=== PATIENT | female | born 1940 | race Caucasian/White ===

== ENCOUNTER 2024-02-05 05:38 | Emergency (ER) | payer MEDICARE, OTHER, SELFPAY ==
[2024-02-05] VITALS (7 sets, daily range): BP systolic 146–173; BP diastolic 84–118; PULSE 81–87; RESP 16–24; TEMP 36.6–36.9; O2SAT 92–97; BMI 38.5
--- NOTE | 2024-02-05 06:02 | EKG12_ITS ---
Test Reason : DYSRHYTHMIA Blood Pressure : / mmHG Vent. Rate : 079 BPM Atrial Rate : 079 BPM P-R Int : 174 ms QRS Dur : 124 ms QT Int : 428 ms P-R-T Axes : 060 043 075 degrees QTc Int : 490 ms Sinus rhythm with occasional Premature ventricular complexes Inferior infarct , age undetermined Anterior infarct , age undetermined Abnormal ECG Confirmed by TRINY MARIA, GAMALIEL ([id number]), photography editor HEATHER HANSEN ([id number]) on 02/06/2024 11:22:45 AM Referred By: Confirmed By:GAMALIEL AGOSTO MD
--- NOTE | 2024-02-05 06:03 | EDS_ITS ---
HPI History of Present Illness Chief Complaint: Shortness of Breath Informant: patient and family Narrative Narrative: 83-year-old female presenting at 5:45 AM for worsening dyspnea and orthopnea over the past 3 or 4 weeks. She has had a cough for over 3 months. She has a complicated medical history, and all of her doctors are in [place] where she usually lives with one of her daughters. However that daughter had to have hip surgery and so now she is living with her other daughter here and has been here since , and daughter admits that she has unexpectedly been here much longer. Her doctors in [place] have been refilling her medications as needed so she has had them however she does not have her list with her and has trouble remembering all of the medications that she is on. She has bilateral leg edema that is chronic and actually little better than usual lately. She had a tunneled infection in her right foot that required her to be on having antibiotics, she has had poor appetite ever since, and also had a complicated hip infection with hardware present to the point where she needed her hip removed and has been bedbound and in a wheelchair ever since. She did spend several months in inpatient rehab recently but is now currently living with her daughter here locally. She denies any chest discomfort. The cough is nonproductive. No fevers or chills. No GI symptoms. Chronic neuropathy that she states is not diabetic-related in her lower distal extremities. She is on clopidogrel but no anticoagulants. History of CABG several years ago, and chronic kidney disease to some degree per daughter. [facility] Medical History (Updated 02/05/24 @ 07:[address] Nik Muhammad MD) Systolic and diastolic CHF, chronic Chronic kidney disease, stage 3 unspecified CAD (coronary artery disease) HTN (hypertension) Hypothyroidism Great toe amputee Home Medications ?Medication ?Instructions ?Recorded ?Last Taken ?Type amiodarone 200 mg tablet 200 mg PO DAILY 02/05/24 Unknown History clopidogrel 75 mg tablet 75 mg PO DAILY 02/05/24 Unknown History doxycycline hyclate 100 mg capsule 40 mg PO BID 02/05/24 Unknown History duloxetine 60 mg capsule,delayed 60 mg PO DAILY 02/05/24 Unknown History release (Cymbalta) esomeprazole magnesium 40 mg 40 mg PO DAILY 02/05/24 Unknown History capsule,delayed release (Nexium) ezetimibe 10 mg tablet (Zetia) 10 mg PO DAILY 02/05/24 Unknown History furosemide 20 mg tablet (Lasix) 10 mg PO QDAY PRN edema 02/05/24 Unknown History gabapentin 600 mg tablet 600 mg PO TID 02/05/24 Unknown History hydralazine 25 mg tablet 25 mg PO TID 02/05/24 Unknown History hydroxyzine HCl 25 mg tablet 12.5 mg PO Q8H 02/05/24 Unknown History levothyroxine 100 mcg tablet 100 mcg PO DAILY 02/05/24 Unknown History losartan 100 mg tablet 100 mg PO DAILY 02/05/24 Unknown History niacin 100 mg tablet 100 mg PO DAILY 02/05/24 Unknown History potassium chloride 20 mEq 20 meq PO DAILY #5 tabs 02/05/24 Unknown Rx tablet,extended release torsemide 10 mg tablet 10 mg PO DAILY PRN pulmonary edema 02/05/24 Unknown History Allergy/AdvReac Type Severity Reaction Status Date / Time Sulfa (Sulfonamide Allergy Other Verified 02/05/24 05:46 Antibiotics) codeine AdvReac Nausea Verified 02/05/24 05:46 furosemide (From Lasix) AdvReac Other Verified 02/05/24 05:46 hydroxychloroquine (From AdvReac Other Verified 02/05/24 05:46 Plaquenil) Surgical History S/P hip replacement History of hysterectomy S/P CABG x 3 Social History (Updated 02/05/24 @ 07:[address] Nik Muhammad MD) household members: family Smoking Status: Never smoker ROS ROS ED Constitutional Constitutional ED: Denies chills or fever(s) Eyes Eyes: Denies change in vision or diplopia ENT ENT ED: Denies rhinorrhea or sore throat Cardiovascular Cardiovascular: Reports leg edema and orthopnea; Denies chest pain or palpitations Respiratory/Chest Respiratory/Chest: Reports cough, dyspnea and orthopnea; Denies sputum Gastrointestinal Gastrointestinal: Denies abdominal pain, diarrhea, hematochezia, melena, nausea or vomiting Genitourinary Genitourinary ED: Denies dysuria or hematuria Musculoskeletal Musculoskeletal: Denies back pain or neck pain Integumentary Denies abscess or rash Neurologic Neurologic: Reports paresthesias RLE and LLE; Denies headache(s) or weakness Psychiatric Psychiatric: Denies anxiety or suicidal thoughts EXAM Physical Exam Const Vital Signs: 02/05/24 05:39 02/05/24 06:08 02/05/24 06:20 Temperature 98.4 F Temperature Source Oral Pulse Rate 85 87 Respiratory Rate 16 24 H Respiratory Effort Normal Respiratory Depth Normal Respiratory Pattern Normal Tachypnea Blood Pressure 165/90 H Blood Pressure Mean 115 Pulse Ox 92 Oxygen Delivery Method Room Air Room Air 02/05/24 06:32 02/05/24 06:50 02/05/24 07:39 Temperature 98.1 F Temperature Source Oral Pulse Rate 83 81 Respiratory Rate 19 H 18 Respiratory Effort Respiratory Depth Respiratory Pattern Blood Pressure 146/118 H 173/84 H Blood Pressure Mean 127 113 Pulse Ox 94 94 97 Oxygen Delivery Method Room Air Room Air Room Air Positive well nourished, well developed and obese General Appearance ED: well developed and NAD Nutritional Appearance: obese HEENT Reports moist mucous membranes normocephalic and atraumatic Eyes PERRL and EOMs intact bilaterally Neck full ROM and supple Neck Narrative: JVD exam limited by obesity Resp normal respiratory effort Resp Narrative: bibasilar rales Cardio regular rate, regular rhythm and no murmurs GI non-tender and non-distended Auscultation: normoactive bowel sounds Palpation: soft Back/Spine no CVA tenderness General Back: other FROM Extremity normal to inspection General Extremety ED: Yes edema; Negative for pulses abnormal or tenderness General Extremity: edema bilateral lower extremity Details: severe (w/ changes of chronic stasis dermatitis); Negative for pulses abnormal Neuro oriented x3, CN's II-XII intact bilaterally and no sensory deficits noted Sensorium / Orientation: awake and alert Motor Exam: strength 5/5 throughout Skin no rashes or lesions noted and no wounds MDM MDM MDM Narrative Medical decision making narrative: I did review some records and [facility] since the patient had no records here. She does have a history of chronic kidney disease stage III as well as congestive heart failure with an ejection fraction estimated at 27% mostly diastolic issues according to the summary. She is on torsemide 10 mg daily, show the medication list to the patient and daughter and have them go over it to confirm any discrepancies. She did confirm she is on amiodarone but does not have a history of dysrhythmias, unsure why she is on that particular medication. Also takes clopidogrel no anticoagulants. Here she has history and exam consistent with acute congestive heart failure. Her 1 view chest x-ray is consistent with pulmonary edema/CHF on my interpretation. In discussing this with the patient and daughter, we went over the list and it turns out she is on torsemide but she does not take it. She only uses it as needed for acute CHF. I believe she needs this now and it is reassuring that her creatinine is 1.0. She is not in respiratory distress and not hypoxic while sitting. I offered admission if she feels like she cannot lie down, but they decline and are comfortable taking her torsemide and being discharged. She understands that she has complicated medical history and will need to have labs rechecked at some point, her condition reevaluated ideally, and for this reason follow-up with someone locally. Given her dose of IV Bumex 1 mg here and she is asking for a pure wick system because she has chronic urinary incontinence which is being done and I am giving her a dose of potassium orally as well, because her level is a little low. BNP is consistent with all of this, 4400. At this time the patient is starting to kick some urine out from the Bumex via pure wick, she is lying supine, speaking in full sentences without respiratory distress, oxygen saturation 91%. She is comfortable discharge home. Can give her prescription for some potassium and refer her to a local PCP, as she is going to be here until at least March. She lives in [place] so as I discussed with daughter she is welcome to choose someone a little more local to her if she wishes. History & Record Review Additional record(s) reviewed:: No prior records (at this hospital) and Other (via [facility]: summary of care from 01/05/24 [facility] w/ med list and problem list) Lab Data Attestation: I reviewed the patient's lab results. Labs: Laboratory Results - last 24 hr 02/05/24 02/05/24 02/05/24 06:00 06:00 06:47 WBC Cancelled 7.9 Corrected WBC Cancelled RBC Cancelled 3.96 L Hgb Cancelled 10.6 L Hct Cancelled 34.5 L MCV Cancelled 87.1 MCH Cancelled 26.8 L MCHC Cancelled 30.7 L RDW Std Deviation Cancelled 51.4 H RDW Coeff of Toro Cancelled 16.7 H Plt Count Cancelled 267 MPV Cancelled 10.9 Immature Gran % (Auto) Cancelled 0.300 Neut % (Auto) Cancelled 74.3 H Lymph % (Auto) Cancelled 13.0 L [place] % (Auto) Cancelled 9.3 Eos % (Auto) Cancelled 2.5 Baso % (Auto) Cancelled 0.6 Absolute Neuts (auto) Cancelled 5.8 Absolute Lymphs (auto) Cancelled 1.02 Total Counted Cancelled Neutrophils % (Manual) Cancelled Band Neutrophils % Cancelled Lymphocytes % (Manual) Cancelled Monocytes % (Manual) Cancelled Eosinophils % (Manual) Cancelled Basophils % (Manual) Cancelled Metamyelocytes % Cancelled Myelocytes % Cancelled Promyelocytes % Cancelled Blast Cells % Cancelled Plasma Cell % (Manual) Cancelled Other Cells % Cancelled Nucleated RBC % Cancelled 0 Nucleated RBCs/100 WBC Cancelled Differential Comment Cancelled Diff Path Review Cancelled Hypersegmented Neuts Cancelled Atypical Lymphocytes Cancelled Reactive Lymphocytes Cancelled Smudge Cells Cancelled Toxic Granulation Cancelled Toxic Vacuolation Cancelled Dohle Bodies Cancelled Andreia Rods Cancelled Platelet Estimate Cancelled Plt Morphology Comment Cancelled RBC Morphology Cancelled Cancelled Polychromasia Cancelled Hypochromasia Cancelled Basophilic Stippling Cancelled Anisocytosis Cancelled Microcytosis Cancelled Macrocytosis Cancelled Spherocytes Cancelled Sickle Cells Cancelled Target Cells Cancelled Tear Drop Cells Cancelled Ovalocytes Cancelled Stomatocytes Cancelled [place] Bodies Cancelled [place] Cells Cancelled Bite Cells Cancelled Crenated Cell Cancelled Acanthocytes (Spur) Cancelled Rouleaux Cancelled Schistocytes Cancelled Sodium 140 Potassium 3.2 L Chloride 108 H Carbon Dioxide 23.0 Anion Gap 9 BUN 29 H Creatinine 1.00 Estim Creat Clear Calc 53.04 Est GFR (MDRD) Af Amer 68 Est GFR (MDRD) Non-Af 56 L BUN/Creatinine Ratio 29.0 H Glucose 138 H Calcium 10.5 H Troponin I High Sens 27 B-Natriuretic Peptide Cancelled 4412.2 H Radiography Diagnostic Testing: Clinical Impression(s) from Imaging Studies Chest X-Ray 02/05/24 06:25 IMPRESSION: Mild interstitial edema with small pleural effusions. Electronically Signed: Colette Cuevas MD at 7:18 EDT , Rhythm Strip Rhythm Strip: Sinus Rhythm Rate: 80 Ectopy: PVC(s) EKG Initial EKG: Attestation: I personally reviewed and interpreted this EKG as follows: Interpretation: Sinus Rhythm and No Acute Injury Pattern Prior EKG tracings: not available for review Prior: No Prior Discharge Plan Triage Chief Complaint: Shortness of Breath ED Provider: Nik Muhammad Dx/Rx/DC Orders Clinical Impression: Acute exacerbation of CHF (congestive heart failure), Hypokalemia Instructions: Heart Failure Dc Prescriptions: New potassium chloride 20 mEq tablet extended release 20 meq PO DAILY Qty: 5 0RF No Action doxycycline hyclate 100 mg capsule 40 mg PO BID levothyroxine 100 mcg tablet 100 mcg PO DAILY hydroxyzine HCl 25 mg tablet 12.5 mg PO Q8H amiodarone 200 mg tablet 200 mg PO DAILY clopidogrel 75 mg tablet 75 mg PO DAILY duloxetine [Cymbalta] 60 mg capsule,delayed release(DR/EC) 60 mg PO DAILY esomeprazole magnesium [Nexium] 40 mg capsule,delayed release(DR/EC) 40 mg PO DAILY ezetimibe [Zetia] 10 mg tablet 10 mg PO DAILY gabapentin 600 mg tablet 600 mg PO TID hydralazine 25 mg tablet 25 mg PO TID losartan 100 mg tablet 100 mg PO DAILY niacin 100 mg tablet 100 mg PO DAILY furosemide [Lasix] 20 mg tablet 10 mg PO QDAY PRN (Reason: edema) torsemide 10 mg tablet 10 mg PO DAILY PRN (Reason: pulmonary edema) Primary Care Provider: [facility] Doctor,Out of Referrals: Soheila Nugent MD [Med Staff - Active Staff] - As soon as possible Print Language: Kinyarwanda Disposition Disposition: Home, Self Care
[2024-02-05] MEDS: Ipratropium/Albuterol Sulfate 3 ML AMPUL.NEB INHALATION (06:20)
--- NOTE | 2024-02-05 06:25 | RAD_ITS ---
INDICATION: sob EXAMINATION/TECHNIQUE: X-RAY - XR Chest 1 View AP portable. 6:23 AM COMPARISON: None. FINDINGS: LINES/DEVICES: None. LUNGS: Pulmonary vascular congestion with likely mild interstitial edema. Small bilateral pleural effusions. No consolidation. No pneumothorax. MEDIASTINUM: Aorta is atherosclerotic. CARDIAC SILHOUETTE: Enlarged. Sternal wires. Left atrial appendage clip. BONES AND SOFT TISSUES: No acute abnormalities. RAD/Chest 1 View (Portable) IMPRESSION: Mild interstitial edema with small pleural effusions. Electronically Signed: Colette Cuevas MD at 7:18 EDT ,
[2024-02-05 06:40] LABS: Anion Gap 9 (5-15); BUN 29 mg/dL (7-18); Calcium,Total 10.5 mg/dL (8.5-10.1); Chloride 108 mmol/L (98-107); EST Glomerular Filtration Rate 56 mL/min (>60); Est Glom Filt Rate - Afr Amer 68 mL/min (>60); Estimated Creatinine Clearance 53.04 ml/min; Glucose 138 mg/dL (74-106); Potassium 3.2 mmol/L (3.5-5.1); Sodium Level 140 mmol/L (136-145); Troponin-I HS 27 pg/mL (3.0-54.0)
[2024-02-05 06:57] LABS: Absolute Lymphocyte Count 1.02 X10^3/uL (0.83-4.51); Absolute Neutrophil Count 5.8 X10^3/uL (2.0-7.7); Basophil# 0.05 X10^3/uL; Basophil% 0.6 % (0-1); Eosinophils% 2.5 % (0-5); Hematocrit 34.5 % (37-47); Hemoglobin 10.6 g/dL (12.0-15.0); Lymphocyte # 1.02 X10^3/ul (0.83-4.51); Mean Corp Hgb Conc 30.7 g/dL (32-36); Mean Corpuscular Hgb 26.8 pg (27.0-32.0); Mean Corpuscular Volume 87.1 fL (81-99); Mean Platelet Vol. 10.9 fl (6.2-12.0); Monocyte# 0.73 X10^3/uL; Monocyte% 9.3 % (0-10); NRBC Flagged by Analyzer 0 % (0-5); Neutrophil # 5.84 X10^3/uL (2.7-7.7); Neutrophil % 74.3 % (47-70); Platelet Count 267 K/mm3 (150-450); RBC Distribution Width CV 16.7 % (11.6-14.6); RBC Distribution Width SD 51.4 fl (35.1-43.9); Red Blood Count 3.96 M/mm3 (4.2-5.4); White Blood Count 7.9 K/mm3 (4.4-11.0)
[2024-02-05] MEDS: Potassium Chloride Oral Tablet 20 MEQ PO (07:22)
[2024-02-05] MEDS: Bumetanide 1 MG/4 ML Vial IV (07:23)
[2024-02-05 07:42] LABS: BNP,B-Type NATRIURETIC PEPTIDE 4412.2 pg/mL (0-100)
== END 2024-02-05 08:41 | disposition home or self-care (01) ==
PROVIDERS: Emergency Provider Emergency Medicine; Visit Provider Emergency Medicine
DX: I13.10 Hypertensive heart and chronic kidney disease without heart failure, with stage 1 through stage 4 chronic kidney disease, or unspecified chronic kidney disease (principal); I50.42 Chronic combined systolic (congestive) and diastolic (congestive) heart failure; E87.6 Hypokalemia; R32 Unspecified urinary incontinence; Z79.02 Long term (current) use of antithrombotics/antiplatelets; Z95.1 Presence of aortocoronary bypass graft; N18.9 Chronic kidney disease, unspecified; Z79.899 Other long term (current) drug therapy; I25.10 Atherosclerotic heart disease of native coronary artery without angina pectoris; E03.9 Hypothyroidism, unspecified; Z96.649 Presence of unspecified artificial hip joint; Z90.710 Acquired absence of both cervix and uterus
CPT/HCPCS: 71045; 80048; 83880; 84484; 85025; 93005; 94640; 96374; 99283; A4216